=== PATIENT | female | born 1945 | race Caucasian/White ===

== ENCOUNTER 2025-02-26 18:22 | Inpatient (IN) | payer MEDICARE ==
[~2025-02-26] VITALS: Ht 162.6 cm; Wt 55.4 kg
[2025-02-26 19:14] LABS: PLATELET COUNT (AUTO) 199 K/uL (150-450); RED BLOOD CELL COUNT(AUTO) 3.89 MIL/uL (4.0-5.2); RED CELL DISTRIBUTION WIDTH 12.3 % (11.5-15.0); WHITE BLOOD COUNT (AUTO) 5.1 K/uL (4.3-11.0)
[2025-02-26 19:27] LABS: CALCIUM, SERUM 9.5 mg/dL (8.5-10.1); CREATININE 1.0 mg/dL (0.6-1.3); SODIUM SERUM 141 mmol/L (136-145); UREA NITROGEN, BLOOD 29 mg/dL (7-18)
[2025-02-26 19:32] LABS: ALCOHOL, BLOOD < 3 mg/dL (0-10); ASPARTATE AMINOTRANSFERASE 33 U/L (15-37); TOTAL PROTEIN, SERUM 7.1 g/dL (6.4-8.2)
[2025-02-26 19:58] LABS: APPEARANCE,URINE CLEAR (CLEAR); BLOOD, URINE NEGATIVE Ery/uL (NEGATIVE); LEUKOCYTE ESTERASE ,URINE NEGATIVE (NEGATIVE); NITRITE, URINE NEGATIVE (NEGATIVE); UGLUCOSE NEGATIVE (NEGATIVE)
[2025-02-26 20:07] LABS: AMPHETAMINE, URINE NEGATIVE (NEGATIVE); BARBITURATE, URINE NEGATIVE (NEGATIVE); BENZODIAZEPINE, URINE NEGATIVE (NEGATIVE); CANNABINOID, URINE NEGATIVE (NEGATIVE); COCCAINE, URINE NEGATIVE (NEGATIVE); OPIATE, URINE NEGATIVE (NEGATIVE)
[2025-02-26] MEDS: ACETAMINOPHEN 325 MG TABLET PO ONE (21:05)
[2025-02-26] MEDS ORDERED: ACETAMINOPHEN 325 MG TABLET ONE (21:05)
[2025-02-26] MEDS ORDERED: FAMO20TA8 PO (23:16)
[2025-02-26] MEDS ORDERED: ATOR80TA PO (23:16)
[2025-02-26] MEDS ORDERED: PANT40TA49 PO (23:16)
[2025-02-26] MEDS ORDERED: QUET25TA PO (23:16)
[2025-02-26] MEDS ORDERED: EZET10TA15 PO (23:16)
[2025-02-26] MEDS ORDERED: AMLO-212 PO (23:16)
[2025-02-26] MEDS ORDERED: LOSA50TA39 PO (23:16)
[2025-02-26] MEDS ORDERED: HYDR200T4 PO (23:16)
[2025-02-26] MEDS ORDERED: OXYB-58 PO (23:16)
[2025-02-26] MEDS ORDERED: GABA-532 PO (23:16)
[2025-02-27] MEDS ORDERED: MAGNESIUM HYDROXIDE 30 ML UDC PO PRN (00:30)
[2025-02-27] MEDS ORDERED: MAG HYDROX/AL HYDROX/SIMETH 30 ML UDC PO PRN (00:30)
[2025-02-27] MEDS ORDERED: QUETIAPINE FUMARATE 25 MG TABLET PO PRN (00:30)
[2025-02-27] MEDS ORDERED: ZOLPIDEM TARTRATE 5 MG TABLET PO PRN (00:30)
[2025-02-27] MEDS ORDERED: ASPI-1169 PO (00:32)
[2025-02-27] MEDS ORDERED: CHOL100045 PO (00:35)
[2025-02-27] MEDS ORDERED: FOLI0.8C PO (00:38)
[2025-02-27] MEDS ORDERED: FOLI0.8T3 PO (00:38)
[2025-02-27] MEDS ORDERED: HEPA50008 SQ (00:40)
[2025-02-27] MEDS ORDERED: MAGN200T5 PO (00:46)
[2025-02-27] MEDS ORDERED: MELA3CAP2 PO (00:47)
[2025-02-27] MEDS ORDERED: MULT-225 PO (00:47)
[2025-02-27] MEDS ORDERED: ONDA4TAB11 PO (00:48)
[2025-02-27] MEDS ORDERED: POLY17PO4 PO (00:50)
[2025-02-27] MEDS: BLOOD SUGAR DIAGNOSTIC 1 EACH STRIP IN ONE (01:28)
[2025-02-27] MEDS ORDERED: Z GUARD REMEDY 4 OZ OINT TP PRN (02:00)
[2025-02-27 08:00] VITALS: BP 157/85; TEMP 98; O2SAT 98
[2025-02-27] MEDS ORDERED: ONDANSETRON 4 MG TAB.RAPDIS PO PRN (11:30)
[2025-02-27] MEDS: FOLIC ACID 1 MG TABLET PO SCH (11:50)
[2025-02-27 16:00] VITALS: BP 132/74; TEMP 97.7; O2SAT 95
[2025-02-27] MEDS: FAMOTIDINE (20 MG) 20 MG TABLET PO SCH (16:42)
[2025-02-27] MEDS: LOSARTAN POTASSIUM 50 MG TABLET PO SCH (16:42)
[2025-02-27] MEDS: GABAPENTIN 100 MG CAPSULE PO SCH (16:42)
[2025-02-27] MEDS: HEPARIN SODIUM, PORCINE 5000 UNITS/1 ML VIAL SQ SCH (20:56)
[2025-02-27 20:58] VITALS: BP 129/70; TEMP 98; O2SAT 98
[2025-02-27] MEDS: MAGNESIUM OXIDE 400 MG TABLET PO SCH (21:20)
[2025-02-27] MEDS: ATORVASTATIN 40 MG TABLET PO SCH (21:22)
[2025-02-28] MEDS ORDERED: PANTOPRAZOLE 40 MG TABLET.DR PO SCH (07:30)
[2025-02-28 07:39] LABS: INR 1.01 (0.91-1.10)
[2025-02-28 08:00] VITALS: BP 141/67; TEMP 97.7; O2SAT 99
[2025-02-28] MEDS: OXYBUTYNIN CHLORIDE ER 5 MG TAB PO SCH (08:29)
[2025-02-28] MEDS: DIVALPROEX SODIUM 250 MG TABLET.DR PO SCH (08:29)
[2025-02-28] MEDS: CHOLECALCIFEROL 1,000 UNIT TABLET (VIT D3) PO SCH (08:30)
[2025-02-28] MEDS: MULTIVITAMINS,THERAGRAN 1 UDTAB TABLET PO SCH (08:30)
[2025-02-28] MEDS: EZETIMIBE 10 MG TABLET PO SCH (08:30)
[2025-02-28] MEDS: ASPIRIN 81 MG TAB.CHEW PO SCH (08:30)
[2025-02-28] MEDS: AMLODIPINE BESYLATE 5 MG TABLET PO SCH (08:30)
[2025-02-28] MEDS: HYDROXYCHLOROQUINE 200 MG TABLET PO SCH (08:51)
[2025-02-28 16:00] VITALS: BP 129/72; TEMP 97.8; O2SAT 96
[2025-02-28 20:20] VITALS: BP 131/82; TEMP 97.7; O2SAT 98
[2025-03-01 07:39] LABS: INR 0.99 (0.91-1.10)
[2025-03-01 07:55] LABS: CALCIUM, SERUM 9.1 mg/dL (8.5-10.1); CREATININE 1.0 mg/dL (0.6-1.3); SODIUM SERUM 145.0 mmol/L (136-145); UREA NITROGEN, BLOOD 28.0 mg/dL (7-18)
[2025-03-01 07:59] LABS: LDL 22.0 mg/dL (0-99)
[2025-03-01 08:00] VITALS: BP 98/81; TEMP 97.8; O2SAT 98
[2025-03-01 08:03] LABS: PLATELET COUNT (AUTO) 193 K/uL (150-450); RED BLOOD CELL COUNT(AUTO) 3.77 MIL/uL (4.0-5.2); RED CELL DISTRIBUTION WIDTH 12.4 % (11.5-15.0); WHITE BLOOD COUNT (AUTO) 4.8 K/uL (4.3-11.0)
[2025-03-01] MEDS: PANTOPRAZOLE 40 MG TABLET.DR PO SCH (08:29)
[2025-03-01 15:59] VITALS: BP 136/65; TEMP 98.1; O2SAT 98
[2025-03-01 20:08] VITALS: BP 132/90; TEMP 97.5; O2SAT 98
[2025-03-01] MEDS: ZOLPIDEM TARTRATE 5 MG TABLET PO PRN (23:31)
[2025-03-02 07:42] LABS: INR 1.0 (0.91-1.10)
[2025-03-02 08:00] VITALS: BP 145/75; TEMP 97.9; O2SAT 98
[2025-03-02] MEDS: DIVALPROEX SODIUM 125 MG TABLET.DR PO SCH ×2 (08:37→21:23)
[2025-03-02] MEDS: ENSURE ENLIVE 237 ML LIQUID (VANILLA) PO SCH (08:37)
[2025-03-02 16:00] VITALS: BP 135/70; TEMP 98.1; O2SAT 98
[2025-03-02 20:00] VITALS: BP 148/85; TEMP 97.9; O2SAT 98
[2025-03-02 20:19] VITALS: BP 148/85; TEMP 97.9; O2SAT 79; O2SAT 96
[2025-03-03 07:01] LABS: INR 1.0 (0.91-1.10)
[2025-03-03 08:00] VITALS: BP 129/70; TEMP 97.7; O2SAT 99
[2025-03-03 16:00] VITALS: BP 102/55; TEMP 98.2; O2SAT 100
[2025-03-03 20:00] VITALS: BP 128/68; TEMP 97.3; O2SAT 100
[2025-03-03 20:10] VITALS: BP 128/64; TEMP 97.3; O2SAT 98
[2025-03-03] MEDS: HEPARIN SODIUM, PORCINE 5000 UNITS/1 ML VIAL ONE (22:13)
[2025-03-04 08:00] VITALS: BP 130/72; TEMP 98.2; O2SAT 97
[2025-03-04 16:00] VITALS: BP 114/70; TEMP 98.7; O2SAT 93
[2025-03-05] MEDS: ACETAMINOPHEN 325 MG TABLET PO PRN (00:11)
[2025-03-05 05:06] VITALS: BP 121/63; TEMP 97.9; O2SAT 98
[2025-03-05 08:00] VITALS: BP 114/59; TEMP 97.8; O2SAT 97
[2025-03-05 15:58] VITALS: BP 139/66; TEMP 98.8; O2SAT 98
[2025-03-05] MEDS: LOSARTAN POTASSIUM 25 MG TABLET PO SCH (16:20)
[2025-03-05 20:28] VITALS: BP 148/74; TEMP 97.9; O2SAT 98
[2025-03-06] MEDS: HEPARIN SODIUM, PORCINE 5000 UNITS/1 ML VIAL SQ ONE (00:33)
[2025-03-06 08:07] VITALS: BP 149/69; TEMP 97.8; O2SAT 92
[2025-03-06] MEDS: POLYETHYLENE GLYCOL 3350 17 GM POWD.PACK PO PRN (08:12)
[2025-03-06] MEDS: AMLODIPINE BESYLATE 5 MG TABLET PO SCH (08:15)
[2025-03-06 16:00] VITALS: BP 128/73; TEMP 97.8; O2SAT 97
[2025-03-06 20:43] VITALS: BP 115/89; TEMP 98.6; O2SAT 98
[2025-03-07] MEDS ORDERED: Z GUARD REMEDY 4 OZ OINT TP PRN (02:30)
[2025-03-07 08:00] VITALS: BP 138/58; TEMP 98.4; O2SAT 98
[2025-03-07 08:07] LABS: CALCIUM, SERUM 9.1 mg/dL (8.5-10.1); CREATININE 0.9 mg/dL (0.6-1.3); SODIUM SERUM 144.0 mmol/L (136-145); UREA NITROGEN, BLOOD 35.0 mg/dL (7-18)
[2025-03-07 08:30] LABS: PLATELET COUNT (AUTO) 173 K/uL (150-450); RED BLOOD CELL COUNT(AUTO) 3.70 MIL/uL (4.0-5.2); RED CELL DISTRIBUTION WIDTH 12.1 % (11.5-15.0); WHITE BLOOD COUNT (AUTO) 6.6 K/uL (4.3-11.0)
[2025-03-07 16:00] VITALS: BP 124/74; TEMP 97.9; O2SAT 99
[2025-03-07 20:36] VITALS: BP 123/77; TEMP 97.9; O2SAT 97
[2025-03-08 08:00] VITALS: BP 100/56; TEMP 98.7; O2SAT 98
[2025-03-08 16:00] VITALS: BP 133/64; TEMP 98.4; O2SAT 99
[2025-03-08 19:50] VITALS: BP 121/70; TEMP 98.4; O2SAT 99
[2025-03-09 08:00] VITALS: BP 140/66; TEMP 97.8; O2SAT 95
[2025-03-09 15:59] VITALS: BP 107/55; TEMP 97.8; O2SAT 96
[2025-03-09 20:16] VITALS: BP 104/61; TEMP 97.9; O2SAT 98
[2025-03-10 08:00] VITALS: BP 129/59; TEMP 98.3; O2SAT 95
[2025-03-10 16:00] VITALS: BP 134/80; TEMP 98.4; O2SAT 100
[2025-03-10 19:47] VITALS: BP 125/73; TEMP 98.1; O2SAT 98
[2025-03-11 08:00] VITALS: BP 137/98; TEMP 97.5; O2SAT 97
[2025-03-11] MEDS: DIVALPROEX SODIUM 125 MG TABLET.DR PO SCH (14:02)
[2025-03-11 16:00] VITALS: BP 133/72; TEMP 98.3; O2SAT 93
[2025-03-11 19:55] VITALS: BP 130/92; TEMP 97.7; O2SAT 98
[2025-03-11 20:00] VITALS: BP 138/92; TEMP 97.7; O2SAT 98
[2025-03-12 08:00] VITALS: BP 125/54; TEMP 97.9; O2SAT 100
[2025-03-12 08:21] VITALS: BP 125/54
[2025-03-12] MEDS: DIVALPROEX SODIUM 250 MG TABLET.DR PO SCH (09:19)
== END 2025-03-12 14:18 | DRG 885 ==
LOC: ER 18:44 → GPS 22:50
PROVIDERS: ADMIT Acupuncturist; ATTEND Nurse Practitioner Acute Care
DX: F29 Unspecified psychosis not due to a substance or known physiological condition (principal); F03.93 Unspecified dementia, unspecified severity, with mood disturbance; F03.92 Unspecified dementia, unspecified severity, with psychotic disturbance; G93.40 Encephalopathy, unspecified; F03.94 Unspecified dementia, unspecified severity, with anxiety; F39 Unspecified mood [affective] disorder; E78.5 Hyperlipidemia, unspecified; I10 Essential (primary) hypertension; F41.9 Anxiety disorder, unspecified; G62.9 Polyneuropathy, unspecified; Z85.3 Personal history of malignant neoplasm of breast; M06.9 Rheumatoid arthritis, unspecified; Z79.899 Other long term (current) drug therapy; Z91.010 Allergy to peanuts; Z88.0 Allergy status to penicillin; Z91.013 Allergy to seafood; Z88.8 Allergy status to other drugs, medicaments and biological substances; Z91.018 Allergy to other foods; N32.81 Overactive bladder; Z86.73 Personal history of transient ischemic attack (TIA), and cerebral infarction without residual deficits; K21.9 Gastro-esophageal reflux disease without esophagitis; F31.9 Bipolar disorder, unspecified; R79.89 Other specified abnormal findings of blood chemistry
CPT/HCPCS: 36415; 70450-TC; 73700-TC; 80048-TC; 80061-TC; 80076-TC; 80164-TC; 82140-TC; 82962-TC; 85025-TC; 85610-TC; 87081-TC; 97110-TC; 97116-TC; 97530-TC; G0480; J1644

== ENCOUNTER 2025-07-07 10:44 | Emergency (ER) | payer MEDICARE, MEDICAID ==
[~2025-07-07] VITALS: Ht 162.6 cm; Wt 64.0 kg
[~2025-07-07 10:44] MED LIST: AMLO-212 PO; ASPI-1169 PO; ATOR80TA PO; CHOL100045 PO; EZET10TA15 PO; FAMO20TA8 PO; FOLI0.8T3 PO; GABA-532 PO; HEPA50008 SQ; HYDR200T4 PO; LOSA50TA39 PO; MAGN200T5 PO; MELA3CAP2 PO; MULT-225 PO; ONDA4TAB11 PO; OXYB-58 PO; PANT40TA49 PO; POLY17PO4 PO; QUET25TA PO
[2025-07-07 10:51] VITALS: TEMP 97.8
[2025-07-07 13:07] VITALS: BP 134/68; O2SAT 98
== END 2025-07-07 13:12 ==
LOC: ER 11:06
DX: S09.90XA Unspecified injury of head, initial encounter (principal); I11.9 Hypertensive heart disease without heart failure; F31.9 Bipolar disorder, unspecified; E78.5 Hyperlipidemia, unspecified; Z91.013 Allergy to seafood; Z88.2 Allergy status to sulfonamides; Z91.010 Allergy to peanuts; Z88.0 Allergy status to penicillin; Z79.899 Other long term (current) drug therapy; Z79.82 Long term (current) use of aspirin; W19.XXXA Unspecified fall, initial encounter; Y93.89 Activity, other specified; Y92.89 Other specified places as the place of occurrence of the external cause; Y99.8 Other external cause status
CPT/HCPCS: 70450-TC; 71045-TC; 72125-TC; 73521